=== PATIENT | female | born 1990 | race Caucasian/White ===

== ENCOUNTER 2020-07-19 00:11 | Emergency (ER) | payer OTHER ==
[~2020-07-19 00:11] MED LIST: BACTRIM DS TAB1 EACH PO; BROMFED DM COU473 ML PO; CLEOCIN300 MG PO; IBU600 MG PO; TESSALON PERLE100 M1 PO
[2020-07-19] MEDS ORDERED: IBUPROFEN800 MG PO (00:54)
== END 2020-07-19 01:13 | disposition home or self-care (01) ==
LOC: FER 00:11
DX: S93.402A Sprain of unspecified ligament of left ankle, initial encounter (principal); F17.210 Nicotine dependence, cigarettes, uncomplicated; Z88.0 Allergy status to penicillin; Z88.8 Allergy status to other drugs, medicaments and biological substances; W22.03XA Walked into furniture, initial encounter; Y92.009 Unspecified place in unspecified non-institutional (private) residence as the place of occurrence of the external cause
CPT/HCPCS: 73610